=== PATIENT | male | born 1955 | race Caucasian/White ===

== ENCOUNTER 2023-10-20 22:04 | Emergency (ER) | payer OTHER, SELFPAY ==
[2023-10-20 22:05] VITALS: BP 161/87
--- NOTE | 2023-10-20 22:58 | ED.GENMED ---
History of Present Illness
<VIOLA Raphael - Last Filed: 10/20/23 23:46>
General
Chief Complaint: Musculo-Skeletal Complaint
Time Seen by Provider: 10/20/23 22:43
History of Present Illness
History of Present Illness:
Patient is a 68 y/o male presenting with right shoulder pain x1 hour. He states he was playing hockey and he collided with another playing leading with his shoulder. He states he immediately began to have pain with movement of the arm. He states the
pain is located to the anterior lateral shoulder and does not radiate. He states the pain is an 8/10 with movement and he has no pain at rest. He has not taken anything for the pain. He denies any history of injuring that shoulder in the past. He
denies any loss of sensation in the fingers or arm. He denies any other complaints.
<Bhaskar Epperson DO - Last Filed: 10/20/23 23:37>
General
Source: patient
Past History
<VIOLA Raphael - Last Filed: 10/20/23 23:46>
Past History
ED Past Medical History: HTN, Hypercholesterolemia and Other (OA)
ED Past Surgical History: None, Orthopedic and Tonsilectomy
Social History
Tobacco: Non-smoker
Living: with family
Phy Exam
<VIOLA Raphael - Last Filed: 10/20/23 23:46>
Physical Exam
Physical Exam:
GENERAL: Alert , in no apparent distress
EYE: pupils equal and reactive
Throat: Airway intact, no exudates
NECK: Supple, no significant adenopathy.
CARDIAC: Murmur heard loudest at right second intercostal space. Regular rate and rhythm .
LUNGS: Clear breath sounds bilaterally, no acute respiratory distress, no wheezes/rales/rhonchi
ABDOMEN: Soft, nondistended, nontender
NEUROLOGICAL: Alert and oriented, no focal neuro deficits
SKIN: Warm and dry, skin intact.
MUSCULOSKELETAL: Patient holding right arm at his side in external rotation. Pain in the right shoulder with movement of the right arm. Cannot assess ROM secondary to pain. No bony abnormalities noted. Sensation intact b/l. Radial pulses 2+ b/l.
PSYCH: Normal and appropriate interaction.
Course
<VIOLA Raphael - Last Filed: 10/20/23 23:46>
Orders/Labs/Results
Orders:
Orders
10/20/23 22:08
Shoulder, Right, Trauma [CR Shoulder, Trauma - Right] Urgent
Comment:
Reason For Exam: injury
10/20/23 23:09
Sling [Braces/Immobilizers] As Directed
Type of Brace/Immobilizer: Sling
Location for Brace/Immobilizer: Right Shoulder
10/20/23 23:34
Ibuprofen [Motrin] 600 mg PO NOW STA
Vital Signs
Initial and Last Documented VS:
Initial Vital Signs
Temp Pulse Resp BP Pulse Ox
99.1 F 105 18 161/87 99
10/20/23 22:05 10/20/23 22:05 10/20/23 22:05 10/20/23 22:05 10/20/23 22:05
Last Documented Vital Signs
Temp Pulse Resp BP Pulse Ox
99.1 F 69 18 140/61 99
10/20/23 22:05 10/20/23 23:42 10/20/23 23:42 10/20/23 23:42 10/20/23 22:05
<Bhaskar Epperson DO - Last Filed: 10/20/23 23:37>
Orders/Labs/Results
Orders:
Orders
10/20/23 22:08
Shoulder, Right, Trauma [CR Shoulder, Trauma - Right] Urgent
Comment:
Reason For Exam: injury
10/20/23 23:09
Sling [Braces/Immobilizers] As Directed
Type of Brace/Immobilizer: Sling
Location for Brace/Immobilizer: Right Shoulder
10/20/23 23:34
Ibuprofen [Motrin] 600 mg PO NOW STA
Vital Signs
Initial and Last Documented VS:
Initial Vital Signs
Temp Pulse Resp BP Pulse Ox
99.1 F 105 18 161/87 99
10/20/23 22:05 10/20/23 22:05 10/20/23 22:05 10/20/23 22:05 10/20/23 22:05
Last Documented Vital Signs
Temp Pulse Resp BP Pulse Ox
99.1 F 69 18 140/61 99
10/20/23 22:05 10/20/23 23:42 10/20/23 23:42 10/20/23 23:42 10/20/23 22:05
<Bhaskar Epperson DO - Last Filed: 10/20/23 23:37>
MDM/Problems Addressed
Differential Diagnosis Includes:
Shoulder sprain, internal derangement of right shoulder, clavicular fracture, contusion
MDM/Problems Addressed:
68-year-old male that was checked in a hockey game complaining of right shoulder pain. No pain at rest. Pain with lifting of.
Chronic conditions affecting care:
None
Acute Exacerbation and/or Progression of Chronic Illness:
None
<VIOLA Raphael - Last Filed: 10/20/23 23:46>
*Radiology
Radiology exam reviewed: radiology read reviewed
*Pulse Oximetry
Patient hypoxic: no
*EKG
Interpreted by ED Provider?: NA
*Dementia Program Director Interpretation
Rate: Dementia Program Director- N/A
*Critical Care Note
Total Time (30-74mins, 75-104mins- exclusive of procedures): Not Applicable
ED Attending Note
<ST DonavonPA - Last Filed: 10/20/23 23:46>
-
Portions of this chart may have been created with voice recognition software.� Occasional wrong word or��sound alike� substitutions may have occurred due to the inherent limitations of voice recognition software.
<Bhaskar Epperson DO - Last Filed: 10/20/23 23:37>
ED Attending Note
Patient seen and examined by attending physician: Yes
I performed the substantive portion of visit, reviewed & personally made and approve the management plan that is documented in note by myself or MEGHA.: Yes
ED Attending Note:
Pleasant 68-year-old male presents with right shoulder pain after checking a player in an ice hockey game. He states that his shoulder is painful while moving it but less painful at rest. Denies head injury or loss of consciousness. Reports no
other injury. Denies paresthesias. Patient was seen in conjunction with the PA student. I have reviewed and agree with the history and treatment plan presented. On my independent physical exam, patient is awake, alert, and oriented x3, minimal
acute distress while at rest. No tenderness to palpation along the clavicular line. Pain with movement. Plan is to put him in a shoulder sling, follow-up with orthopedics. Patient refused narcotic pain medication. He does take Motrin as needed.
Will prescribe diclofenac.
Discharge Plan
Departure
Patient Disposition: Home (Routine Discharge)
Date of Disposition: 10/20/23
Time of Disposition: 23:34
Patient with high blood pressure during this ER visit?: Yes
Discharge Problem:
Internal derangement of right shoulder
Instructions: Shoulder Sprain (DC), How to Use a Shoulder Sling, Shoulder Pain ED, BLOOD PRESSURE
Prescriptions:
New
diclofenac sodium 75 mg tablet,delayed release (DR/EC)
75 mg PO BID Qty: 10 0RF
No Action
multivitamin [Daily Multiple] 1 EACH tablet
1 ea PO DAILY
cetirizine [Zyrtec] 10 MG tablet,disintegrating
10 mg PO DAILY
acetaminophen [Tylenol Extra Strength] 500 MG tablet
1,000 mg PO Q6HPRN PRN (Reason: pain/fever)
amlodipine-benazepril 1 CAPSULE capsule
1 cap PO HS
rosuvastatin 40 MG tablet
40 mg PO HS
fenofibrate 160 MG tablet
160 mg PO HS
ascorbic acid (vitamin C) [Vitamin C] 500 MG tablet
1,000 mg PO BID Qty: 56 0RF
zinc sulfate 220 MG capsule
220 mg PO DAILY Qty: 14 0RF
cholecalciferol (vitamin D3) 2,000 UNITS tablet
2,000 units PO DAILY Qty: 14 0RF
melatonin 5 MG tablet
5 mg PO HS Qty: 14 0RF
famotidine 20 MG tablet
20 mg PO BID Qty: 28 0RF
aspirin 81 MG tablet,chewable
81 mg PO DAILY Qty: 30 0RF
Referrals:
UNKNOWN - PT DOES,NOT KNOW [Family Provider] -
José Nina MD [Active] - Call in 1-3 days for appt
Activity Restrictions/Additional Instructions:
Your prescriptions were sent electronically to the pharmacy that you specified.
It was a pleasure meeting you and taking part in your care. We hope for your continued healing and wellness.
Please read discharge instructions in their entirety. However, they are for general education and may not describe your exact diagnosis at discharge. Information on your ER visit and medical conditions were discussed with you along with appropriate
follow up information...
If indicated, please take your medications as instructed and indicated on discharge paperwork.
Please schedule a follow up appointment as directed. Call to schedule an appointment
Please return to the emergency department with ANY change in, persisting, or worsening of symptoms. If any of your symptoms do not improve, or persist, or become more severe within 6-12 hours, please return to the emergency department for further
care.
Please return to the emergency department if you develop a headache, neck pain/stiffness, fever greater than 100.4F, chest pain, shortness of breath, persistent nausea, vomiting, slurred speech, difficulty walking, numbness/tingling, weakness, signs
of infection or any other symptoms that are worrisome to you.
If you have any questions or concerns please do not hesitate to call the Hospital at or E-mail me directly at [email or web address]
Interventions
Interventions:
*Risk Screen - Suicide Last Done: 10/20/23 22:05
*General Assessment Last Done: 10/20/23 22:05
*Neglect/Abuse Screening Last Done: 10/20/23 22:05
ED-Musculoskeletal Assessment Last Done: 10/20/23 23:23
Discharge Date and Time
Print Language: WELSH
[2023-10-20] MEDS: MOTRIN 600 MG PO (23:39)
[2023-10-20 23:42] VITALS: BP 140/61
[2023-10-20 23:44] VITALS: BP 140/61
== END 2023-10-20 23:47 | disposition home or self-care (01) ==
LOC: EMR 22:04
PROVIDERS: EMERGENCY PHYSICIAN Student in an Organized Health Care Education/Training Program
DX: M24.811 Other specific joint derangements of right shoulder, not elsewhere classified (principal); I10 Essential (primary) hypertension; E78.00 Pure hypercholesterolemia, unspecified
CPT/HCPCS: 99283; 73030

== ENCOUNTER → 2023-11-05 09:25 | Outpatient (REF) | payer OTHER, SELFPAY ==
[2023-11-05 10:04] LABS: % Basophils 0.8 % (0-2); % Eosinophils 4.6 % (0-6); % Immature Granulocytes 0.8 % (0-0.5); % Lymphocytes 26.4 % (20.5-51.1); % Monocytes 9.3 % (1.7-9.3); % Neutrophils 58.1 % (42.2-75.2); Absolute Basophils 0.1 10^3/uL (0-0.2); Absolute Eosinophils 0.4 10^3/uL (0-0.7); Absolute Immature Granulocytes 0.1 10^3/uL (0-0.05); Absolute Monocytes 0.7 10^3/uL (0.1-0.6); Absolute Neutrophils 4.4 10^3/uL (1.4-6.5); Hematocrit 41.8 % (39.0-52.0); Hemoglobin 14.4 g/dL (13.0-18.0); Mean Corp Hgb Conc. 34.4 g/dL (33.0-37.0); Mean Corpuscular Hgb 32.1 pg (27.0-31.0); Mean Corpuscular Volume 93.3 fL (80.0-94.0); Mean Platelet Volume 10.3 fL (7.4-10.4); Nucleated Red Blood Cells % 0 % (-); Platelet Count 226 10^3/uL (130-400); Red Blood Cell Count 4.48 10^6/uL (4.70-6.10); Red Cell Dist. Width 12.7 % (11.5-14.5); White Blood Cell Count 7.6 10^3/uL (4.8-10.8)
[2023-11-05 10:24] LABS: Blood Urea Nitrogen 21 mg/dl (9-20); Carbon Dioxide 23 mmol/L (22-30); Chloride 103 mmol/L (98-107); Glucose 108 mg/dl (70-99); Potassium 4.7 mmol/L (3.5-5.1); Sodium 140 mmol/L (135-145); eGFR > 60.00
== END ==
LOC: REG 09:25
PROVIDERS: ATTENDING PHYSICIAN Orthopaedic Surgery Hand Surgery; FAMILY PHYSICIAN Family Medicine
DX: Z01.818 Encounter for other preprocedural examination (principal)
CPT/HCPCS: 36415; 80048; 85025

== ENCOUNTER 2024-02-14 07:49 | Emergency (ER) | payer OTHER, SELFPAY ==
[2024-02-14 07:52] VITALS: BP 158/66
[2024-02-14 08:30] VITALS: BP 171/83
[2024-02-14 09:00] VITALS: BP 159/64
--- NOTE | 2024-02-14 09:49 | ED.GENMED ---
History of Present Illness
General
Chief Complaint: Back Pain
Source: patient
Exam Limitations: none
Time Seen by Provider: 02/14/24 09:18
Nursing documentation reviewed up to this point in time: agreed with
History of Present Illness
History of Present Illness:
pt is a 69 y/o M
h/o htn, hld
chronic back pain, L5-s1 disc
says that he woke up this morning and tried to get out of bed and felt pain in the L latearl lumbar region, nonradiating, no weakness/numbness but pain is worse with changing positions. once he gets seated he is ok, once he gets walking he is ok
but the transition is painful, pinpoint L paraspinal region
feels the same as other flare ups
says he has seen someone at [facility] where he had trigger point injection and it helped
he was hoping to get this today
he has not had any weakness, numbness, fever, chills, inctoninence
no recent trauma
had xrays sometime last year
says that sometimes this comes with sciatica but not today
Past History
Past History
ED Past Medical History: HTN, Hypercholesterolemia and Other (OA, aortic stenosis)
ED Past Surgical History: None, Orthopedic and Tonsilectomy
Social History
Tobacco: Non-smoker
Living: with family
Review of Systems
Review of Systems
Allergies reviewed?: Yes
All Other Systems: Not applicable
Phy Exam
Physical Exam
Physical Exam:
GENERAL: Alert , in no apparent distress, comfortable at rest, seated, well appearing, comfortable
HEAD: NCAT
NECK: no midline tenderness, active ROM intact, no paraspinal muscle tenderness;
CARDIAC: Regular rate and rhythm, no edema
LUNGS: Clear breath sounds bilaterally, no acute respiratory distress, no wheezes/rales/rhonchi
ABDOMEN: Soft, without focal tenderness, no r/g, no cvat, normal bowel sounds, nondistended
NEUROLOGICAL: Alert and oriented, no focal neuro deficits, CN intact, 5/5 strength, sensation intact, ambulation slight limp left leg
SKIN: Warm and dry,
MUSCULOSKELETAL: No edema, well perfused. Normal inspection of the left hip, left leg
Patient has no tenderness to palpation of the hip,
hip flexion intact
Back: No midline tenderness, slightly tender L paraspinal muscle lower lumbar region; no skin changes
negative straight leg raise Bilaterally
PSYCH: Normal and appropriate interaction.
Course
Orders/Labs/Results
Orders:
Orders
02/14/24 09:48
Ketorolac [Toradol] 15 mg IM NOW STA
Vital Signs
Initial and Last Documented VS:
Initial Vital Signs
Temp Pulse Resp BP Pulse Ox
36.5 C 77 20 158/66 98
02/14/24 07:52 02/14/24 07:52 02/14/24 07:52 02/14/24 07:52 02/14/24 07:52
Last Documented Vital Signs
Temp Pulse Resp BP Pulse Ox
36.5 C 61 15 154/73 95
02/14/24 07:52 02/14/24 10:00 02/14/24 10:00 02/14/24 10:00 02/14/24 10:00
MDM/Problems Addressed
Differential Diagnosis Includes:
lumbar strain, lumbar muscle spasm, disc herniation,
MDM/Problems Addressed:
69 y/o M with h/o HTN, hld
chronic backp ain
felt his back start hurting this morning when he got up to get out of bed
he has trouble initiating change in position but then feels ok once he gets going
no weakness/numbness/tingling/red flag symptoms, incontience
no fever/chills
nothing taken for pain
has had trigger point injection in hthis region before by ortho
well appearing
tender slightly off midline paraspinal muscle lower lumbar with normal neuro exam
do not feel that imaging will be particularly helpful
neg straight leg raise
pt has had goo response with tramadol, did no llike oxy previously and (pdmp revieweid)
and he can take NSAIDS he says
no AC
will treat with toradol here
pt did drive here, was able to walk from the car
call in rx for tramadol, lidocaine patches
*Critical Care Note
Total Time (30-74mins, 75-104mins- exclusive of procedures): Not Applicable
ED Attending Note
-
Portions of this chart may have been created with voice recognition software.� Occasional wrong word or��sound alike� substitutions may have occurred due to the inherent limitations of voice recognition software.
Discharge Plan
Departure
Patient Disposition: Home (Routine Discharge)
Date of Disposition: 02/14/24
Time of Disposition: 11:24
Patient with high blood pressure during this ER visit?: Yes
Condition: Fair
Covid-19: Not Applicable
Discharge Problem:
Lumbar paraspinal muscle spasm
Instructions: Low Back Pain (DC), BLOOD PRESSURE
Prescriptions:
New
ibuprofen 400 mg tablet
400 mg PO Q8H PRN (Reason: pain) Qty: 12 0RF
tramadol 50 mg tablet
50 mg PO Q8H PRN (Reason: Pain) Qty: 12 0RF
docusate sodium [Colace] 100 mg capsule
100 mg PO BID Qty: 14 0RF
No Action
multivitamin [Daily Multiple] 1 EACH tablet
1 ea PO DAILY
cetirizine [Zyrtec] 10 MG tablet,disintegrating
10 mg PO DAILY
acetaminophen [Tylenol Extra Strength] 500 MG tablet
1,000 mg PO Q6HPRN PRN (Reason: pain/fever)
amlodipine-benazepril 1 CAPSULE capsule
1 cap PO HS
rosuvastatin 40 MG tablet
40 mg PO HS
fenofibrate 160 MG tablet
160 mg PO HS
ascorbic acid (vitamin C) [Vitamin C] 500 MG tablet
1,000 mg PO BID Qty: 56 0RF
zinc sulfate 220 MG capsule
220 mg PO DAILY Qty: 14 0RF
cholecalciferol (vitamin D3) 2,000 UNITS tablet
2,000 units PO DAILY Qty: 14 0RF
melatonin 5 MG tablet
5 mg PO HS Qty: 14 0RF
famotidine 20 MG tablet
20 mg PO BID Qty: 28 0RF
aspirin 81 MG tablet,chewable
81 mg PO DAILY Qty: 30 0RF
diclofenac sodium 75 mg tablet,delayed release (DR/EC)
75 mg PO BID Qty: 10 0RF
Referrals:
Kristy Stern DO [Family Provider] - Follow up in 2-3 days
Activity Restrictions/Additional Instructions:
YOU SHOULD TRY MOTRIN 400 MG 3 TIMES A DAY WITH FOOD FOR 3-5 DAYS FOR INFLAMMATION
APPLY LIDOCAINE PATCH 12 HOURS ON 12 HOURS OFF NEEDED FOR BACK PAIN
APPLY ICE OR HEAT WHEN THE PATCH IS OFF
TRAMADOL 50 MG 3-4 TIMES A DAY FOR SEVERE PAIN, THIS MAY MAKE YOU CONSTIPATED, TAKE COLACE TWICE A DAY WHILE ON THIS TO PREVENT IT.
RETURN FOR: SEVEREP AIN, INABILITY TO WALK, WEAKNESS IN THE LEGS, NUMBNESS, INCONTINENCE, FEVER, ETC
SEE YOUR DOCTOR OR [facility] FOR FOLLOW UP
Interventions
Interventions:
*Risk Screen - Suicide Last Done: 02/14/24 07:52
*Neglect/Abuse Screening Last Done: 02/14/24 07:56
ED- Fall Risk Assessment Last Done: 02/14/24 12:02
*Nursing Disposition Last Done: 02/14/24 12:02
ED-Musculoskeletal Assessment Last Done: 02/14/24 11:40
Discharge Date and Time
Discharge Date/Time: 02/14/24 12:03
Print Language: [id number]
[2024-02-14 10:00] VITALS: BP 154/73
[2024-02-14] MEDS: TORADOL 15 MG IM (10:06)
== END 2024-02-14 12:03 | disposition home or self-care (01) ==
LOC: EMR 07:49
PROVIDERS: EMERGENCY PHYSICIAN Emergency Medicine; FAMILY PHYSICIAN Family Medicine
DX: M62.830 Muscle spasm of back (principal); I10 Essential (primary) hypertension; E78.00 Pure hypercholesterolemia, unspecified; M19.90 Unspecified osteoarthritis, unspecified site; I35.0 Nonrheumatic aortic (valve) stenosis
CPT/HCPCS: 99283